=== PATIENT | male | born 1985 | race Caucasian/White ===

== ENCOUNTER 2017-09-26 23:25 | Observation (INO) ==
[2017-09-27] MEDS ORDERED: Naloxone 0.4 MG/ML INJ IVP PRN (05:29)
[2017-09-27] MEDS ORDERED: Acetaminophen 325 MG TABLET PO PRN (05:29)
[2017-09-27] MEDS ORDERED: 0.9 % Sodium Chloride 1,000 ML IVC SCH (05:30)
--- NOTE | 2017-09-27 05:32 | Internal Med History&Physical ---
Date of Encounter: 09/27/17 Time of Encounter: 05:32 Internal Medicine - H&P: HPI Chief complaint: Chest pain Admitted From: Emergency Dept Plans for Post Hospital Care: Home History of present illness: Mr. Pearce is a 32 year old male with history of anxiety, depression, marijuana and tobacco abuse who was released from [facility] 5 days ago after he was incarcerated for domestic abuse. He presented to the ED in [place] complain of left sided chest tightness with no radiation that started after drinking monster while he was hanging out with some friends. He denies any drug abuse. He did use some Suboxone while he was in [facility] for recreational use. Otherwise denies any other substance abuse including alcohol. He admits to marijuana only. When he presented to the ED at [place] he was noted to be tachycardic and laboratory workup showed potassium of 2.9. Glucose was 184. WBC count was 21.2. He had mild lactic acidosis at 2.5 which resolved after IV fluids. The patient was given 2 L normal saline. He was given IV potassium . He also received Protonix and a GI cocktail. He also received a dose of vancomycin after blood cultures were collected. Patient EKG was sinus tachycardia with no acute ST or T-wave changes. Troponins were not elevated today. Patient denies any fever, chills, nausea, vomiting, shortness breath, abdominal pain, diarrhea, constipation, urinary symptoms, or neurological symptoms. Past Med Surg Social Fam HX - Past Medical History Medical history: hyperlipidemia Psychiatric history: anxiety, depression - Past Surgical History Surgical History: tonsilectomy Additional surgical history: pins in right hand - Social History Smoking Status: Current every day smoker Packs per day: 0.5 Smokeless Tobacco Status: Yes Alcohol use: rarely Drug use: marijuana Internal Medicine - H&P: Meds Amitriptyline [Elavil] 25 mg PO HS 09/26/17 [History] Buspirone HCl [Buspar] 15 mg PO TID 09/26/17 [History] HydrOXYzine 50 mg PO TID 09/27/17 [History] 3 Allergy/AdvReac Type Severity Reaction Status Date / Time codeine Allergy Hives Verified 09/26/17 19:13 Penicillins Allergy See Verified 09/26/17 19:13 Comments All Systems PM: A 10-system review of systems was performed and is negative for pertinent findings except as documented above in the HPI. - Constitutional Vitals: Temp Pulse Resp BP Pulse Ox 98.7 F 95 16 118/78 98 09/27/17 04:36 09/27/17 04:36 09/27/17 04:36 09/27/17 04:36 09/27/17 04:36 - Assessment and plan (1) Chest pain Current Visit: Yes Status: Acute Assessment and plan: Patient has no current chest pain. He explains chest pain after drinking monster. It could be due to the Research causing tachycardia make him feel chest discomfort. The patient was also noted to be hypokalemic with a potassium of 2.9 in [place] which could have caused this chest discomfort due to muscle aches. For now we will trend cardiac enzymes only. The first set in [place] was not elevated. We will check 2 more sets here. Qualifiers: Chest pain type: unspecified Qualified Code(s): R07.9 - Chest pain, unspecified (2) Tachycardia Current Visit: No Status: Acute Assessment and plan: This is resolved now here. It resolved after some hydration in [place]. I suspect it was due to some component of dehydration and a caffeine surge after drinking a monster. Will c/w maintenance IV fluids for now and monitor. He was sinus tachy. (3) Lactic acidosis Current Visit: No Status: Acute Assessment and plan: Resolved with IV hydration. I am repeating one here. Likely volume depleted. (4) Leukocytosis, unspecified Current Visit: No Status: Acute Assessment and plan: Technically meets SIRS criteria with tachycardia as well. No signs of an infection. [place] staff were worried about an infectious process. Blood cultures were collected there. will follow up on those. I am repeating labs here. If WBC count normalize, it would likely mean that the patient's elevated WBC count was due to some dehydration component or reactive. Not an IV drug abuser to worry about bacteremia or endocarditis. Urine drug screen + for marijuana only which he admitted to. Qualifiers: Leukocytosis type: unspecified Qualified Code(s): D72.829 - Elevated white blood cell count, unspecified (5) Hypokalemia Current Visit: No Status: Acute Assessment and plan: Given oral K in the ED at [place]. Will check labs here and replace as needed. (6) Elevated glucose Current Visit: Yes Status: Acute Assessment and plan: Glucose was 184 on a BMP done at [place]. We will check A1c. No history of diabetes. (7) Tobacco abuse Current Visit: Yes Status: Acute Assessment and plan: Nicotine patch (8) Marijuana abuse Current Visit: Yes Status: Acute Assessment and plan: counseled. Patient is adamant that this is helping his anxiety and depression. (9) DVT prophylaxis Current Visit: Yes Status: Acute Assessment and plan: scds - Time Spent With Patient Total time spent is greater than 50% in coordination of care (as documented) at patient's floor/unit and/or counseling patient:
[2017-09-27 06:02] LABS: Basophils % 0.5 %; Eosinophils # 0.3 K/mcL (0.0-0.6); Eosinophils % 3.4 %; Hematocrit 41.8 % (37.5-50.1); Hemoglobin 14.2 g/dL (12.9-16.9); Immature Granulocytes % 0.3 % (0-4); Lymphocytes # 2.1 K/mcL (0.6-4.6); Lymphocytes % 28.8 %; Mean Corpuscular Hemoglobin 28.9 pg (28.0-33.3); Mean Corpuscular Volume 85.1 fL (83.0-100.0); Mean Platelet Volume 9.5 fL (9.4-12.4); Monocytes # 0.7 K/mcL (0.0-1.3); Monocytes % 8.8 %; Neutrophils # 4.3 K/mcL (1.6-8.9); Platelet Count 235 K/mcL (140-400); Red Blood Count 4.91 M/mcL (4.19-5.50); Red Cell Distribution Width 13.4 % (11.5-14.5); Segmented Neutrophils % 58.2 %
[2017-09-27 06:24] LABS: Alanine Aminotransferase 157 Units/L (7-52); Albumin 3.7 g/dL (3.5-5.7); Albumin/Globulin Ratio 1.5 (1.1-2.2); Alkaline Phosphatase 62 Units/L (34-104); Aspartate Amino Transferase 77 Units/L (13-39); BUN/Creatinine Ratio 11 (6-26); Bilirubin,Total 1.4 mg/dL (0.3-1.0); Blood Urea Nitrogen 8 mg/dL (6-20); Calcium 8.7 mg/dL (8.6-10.3); Carbon Dioxide 27 mEq/L (23-29); Chloride 105 mEq/L (98-107); Globulin 2.4 g/dL (2.4-3.5); Glucose 117 mg/dL (70-105); Magnesium 2.2 mg/dL (1.6-2.6); Osmolality,Calculated 283 (280-300); Phosphorous 3.2 mg/dL (2.7-4.5); Potassium 3.5 mEq/L (3.5-5.1); Sodium 137 mEq/L (136-145); Total Protein 6.1 g/dL (6.4-8.9); Troponin I < 0.03 ng/mL (< 0.04); eGFR For African Americans > 60 (> 60); eGFR For Non-African Americans > 60 (> 60)
[2017-09-27 07:45] LABS: Estimated Average Glucose 111 mg/dl; Hemoglobin A1C 5.5 %
[2017-09-27] MEDS ORDERED: Nicotine 21 MG PATCH.TD24 TD SCH (09:00)
--- NOTE | 2017-09-27 12:34 | Discharge Summary ---
- NOTES TO OUTPATIENT PROVIDER Notes to Outpatient Provider: Pt was admitted for leukocytosis, lactic acidosis , and chest pain after drinking Monster. Labs returned to normal after IVF and troponins were negative x 2. Pt states that chest pain has resolved. Date of Encounter: 09/27/17 Time of Encounter: 10:05 - Discharge Diagnosis (1) Hypokalemia Priority: Secondary Status: Resolved Assessment and Plan: Resolved. 3.5 today. (2) Leukocytosis, unspecified Priority: Secondary Status: Resolved Assessment and Plan: Technically meets SIRS criteria with tachycardia and leukocytosis on admission. No signs of an infection. Not an IV drug abuser, no worry about bacteremia or endocarditis. Urine drug screen + for marijuana only which he admitted to. Leukocytosis likely reactive, has resolved this morning are 7.4 today. No tachycardia or fever, patient is normotensive. Qualifiers: Leukocytosis type: unspecified Qualified Code(s): D72.829 - Elevated white blood cell count, unspecified (3) Lactic acidosis Priority: Secondary Status: Resolved Assessment and Plan: Resolved. Lactic acid has returned to normal. (4) Tachycardia Priority: Secondary Status: Resolved Assessment and Plan: This was resolved by the time he was admitted at this facility. It resolved after some hydration in [place]. Likely secondary to dehydration and caffeine from drinking monster prior to admission. (5) Tobacco abuse Priority: Secondary Status: Acute Assessment and Plan: Patient is an every day smoker. States he is not ready to quit at this time. (6) Marijuana abuse Priority: Secondary Status: Acute Assessment and Plan: Patient states that this is helping his anxiety and depression. Drug screen positive. Counseling completed again. (7) DVT prophylaxis Priority: Secondary Status: Acute Assessment and Plan: Ambulatory (8) Chest pain Priority: Secondary Status: Resolved Assessment and Plan: Patient has no current chest pain. He has had no chest pain since arrival. Chest pain after drinking monster. Troponins negative. Chest x-ray negative. Electrolytes have been repleted. Other than smoking, patient has no risk factors for coronary artery disease. EKG without signs of ST elevation. Qualifiers: Chest pain type: unspecified Qualified Code(s): R07.9 - Chest pain, unspecified (9) Elevated glucose Priority: Secondary Status: Resolved Hospital course: Mr. Pearce is a 32 year old male who was recently released from [facility] after 9 months with past medical history of echo use, marijuana abuse. See assessment and plan for hospital course. Discharge discussed with: patient, nurse - Time Spent with Patient Total time spent providing and/or coordinating discharge services: Less than 30 minutes - Discharge Medications Prescriptions: Nicotine Patch [Nicoderm] 21 mg TD DAILY #28 patch.[email or web address] Home Medications: Amitriptyline [Elavil] 25 mg PO HS 09/26/17 [History] Buspirone HCl [Buspar] 15 mg PO TID 09/26/17 [History] HydrOXYzine 50 mg PO TID 09/27/17 [History] Nicotine Patch [Nicoderm] 21 mg TD DAILY #28 patch.[email or web address] 09/27/17 [Rx] Allergies/Adverse Reactions: 3 Allergy/AdvReac Type Severity Reaction Status Date / Time codeine Allergy Hives Verified 09/26/17 19:13 Penicillins Allergy See Verified 09/26/17 19:13 Comments Date of admission: 09/27/17 04:00 Primary care physician: PCP NONE Discharging clinician: Antonella Koroma Anticipated date of discharge: 09/27/17 - Constitutional Vitals: Temp Pulse Resp BP Pulse Ox 98.5 F 76 17 105/67 95 09/27/17 07:41 09/27/17 07:41 09/27/17 07:41 09/27/17 07:41 09/27/17 07:41 General appearance: Present: cooperative, A&O X 3, pleasant, no acute distress, answers questions appropriately - Head Head exam: Present: atraumatic, normal inspection, normocephalic - Eye Eye exam: Present: conjuntiva pink, sclera anicteric - Neck Neck exam general surgery: Present: supple, trachea midline. Absent: lymphadenopathy, tenderness - Respiratory Respiratory exam: Present: CTAB. Absent: accessory muscle use, chest wall tenderness, rales, respiratory distress, rhonchi, wheezes - Cardiovascular Cardiovascular exam: Present: RRR, +S1, +S2. Absent: diastolic murmur, gallop, rubs, systolic murmur - GI/Abdominal GI/Abdominal exam: Present: normal bowel sounds, soft. Absent: distended, hepatomegaly, tenderness - Extremities Exam Extremities exam: Present: normal capillary refill, normal inspection, warm, radial pulses palpable and symmetrical. Absent: calf tenderness, cyanotic, pedal edema, tenderness - Neurological Exam Neurological exam: Present: alert, oriented X3, no focal deficits. Absent: altered, facial droop, speech deficit - Skin Skin exam: Present: dry, intact, normal color, warm. Absent: rash - Patient Status Disposition: Home, Self-Care Condition: Good Functional capacity at discharge: independent ambulation Overall status at discharge: patient is back to baseline - Discharge Instructions Follow Up With: NONE,PCP [Primary Care Provider] - Betty Hernandez [Family Provider] - Additional Instructions: Please follow up with your PCP in the next week for a recheck. Return to the ER as needed for any other problems or concerns, or if your symtpoms return or worsen. Take your medications as directed and return to your normal diet and activities as tolerated. - Diet and Activity Activity: increase activity as tolerated Diet: advance to your usual diet
[2017-09-27 12:58] VITALS: BP 121/84
== END 2017-09-27 14:28 | disposition home or self-care (01) ==
LOC: 3BNU
PROVIDERS: ADMIT Internal Medicine; ATTEND Internal Medicine